=== PATIENT | male | born 1950 | race Caucasian/White ===

== ENCOUNTER 2022-02-28 12:05 | Observation (INO) | payer BC ==
[2022-02-28] MEDS ORDERED: Acetaminophen/oxyCODONE 325-5 MG Tab PO ONE (12:39)
[2022-02-28] MEDS ORDERED: Acetaminophen/HYDROcodone 325-10 MG Tab ONE (12:52)
[2022-02-28] MEDS ORDERED: Acetaminophen/oxyCODONE 325-5 MG Tab ONE (12:53)
[2022-02-28] MEDS ORDERED: Morphine 2 MG/ML SYRINGE IVPUSH ONE (13:56)
[2022-02-28] MEDS ORDERED: Morphine 2 MG/ML SYRINGE ONE (14:16)
[2022-02-28] MEDS: Sodium Chloride 0.9% 10 ML Syringe FLUSH PRN (14:19)
[2022-02-28] MEDS ORDERED: HYDROmorphone 2 MG/ML Syringe IVPUSH SCH (16:30)
[2022-02-28] MEDS: HYDROmorphone 2 MG/ML Syringe IVPUSH SCH (18:27)
[2022-02-28] MEDS ORDERED: Ondansetron 4 MG/2 ML SDV IVPUSH PRN (18:57)
[2022-03-01] MEDS: HYDROmorphone 2 MG/ML Syringe IVPUSH SCH ×5 (01:54→10:21)
[2022-03-01] MEDS: Sodium Chloride 0.9% 10 ML Syringe FLUSH PRN (05:20)
[2022-03-01] MEDS ORDERED: oxyCODONE 5 MG Tab PO SCH (13:00)
[2022-03-01] MEDS ORDERED: oxyCODONE 5 MG Tab PO PRN (18:04)
[2022-03-01] MEDS: oxyCODONE 5 MG Tab PO SCH ×2 (20:42→22:49)
[2022-03-02] MEDS: oxyCODONE 5 MG Tab PO SCH ×2 (03:13→08:26)
[2022-03-02] MEDS ORDERED: oxyCODONE 5 MG Tab PO ONE (09:04)
[2022-03-02] MEDS ORDERED: Albuterol/Ipratropium 3.0-0.5 MG/3 ML Neb Soln NEB SCH (09:17)
[2022-03-02] MEDS ORDERED: Polyethylene Glycol 3350 Powder 17 GM Packet ONE (09:29)
[2022-03-02] MEDS ORDERED: Docusate Sodium 100 MG Cap ONE (09:29)
[2022-03-02] MEDS ORDERED: guaiFENesin 600 MG Tab.ER ONE (09:29)
[2022-03-02] MEDS ORDERED: Albuterol/Ipratropium 3.0-0.5 MG/3 ML Neb Soln ONE (09:29)
[2022-03-02] MEDS ORDERED: guaiFENesin 600 MG Tab.ER PO SCH (09:30)
[2022-03-02] MEDS ORDERED: oxyCODONE 5 MG Tab PO SCH (11:30)
[2022-03-02] MEDS ORDERED: Polyethylene Glycol 3350 Powder 17 GM Packet PO SCH (12:00)
[2022-03-02] MEDS ORDERED: Docusate Sodium 100 MG Cap PO SCH (20:00)
== END 2022-03-02 12:20 | disposition home or self-care (01) ==
LOC: LB.ED 12:05 → LB.MS 13:56
PROVIDERS: ADMIT Physician Assistant; ATTEND Physician Assistant
DX: S22.42XA Multiple fractures of ribs, left side, initial encounter for closed fracture (principal); R11.0 Nausea; W18.30XA Fall on same level, unspecified, initial encounter; Z79.899 Other long term (current) drug therapy; Z20.822 Contact with and (suspected) exposure to COVID-19
CPT/HCPCS: 71101-LT; 96374; 96375; 96376; 97161-GP; 99284-25; A9270-GY; G0378; J1170; J2270; J2405; J3490; J7620; U0002